=== PATIENT | female | born 1960 | race African-American/Black ===

== ENCOUNTER 2016-09-14 09:48 | Emergency (ER) | payer OTHER ==
[2016-09-14 10:03] VITALS: BP 149/100; PULSE 72; TEMP 97.7; BMI 35.2
[2016-09-14] MEDS ORDERED: IBUPROFEN 400 MG TABLET (FP) PO ONE ×2 (11:50→11:58)
--- NOTE | 2016-09-14 11:56 | PDOC ---
History of Present Illness - General Chief Complaint: Injury Stated Complaint: SWOLLEN RT HAND Time Seen by Provider: 09/14/16 11:22 History Source: Patient - History of Present Illness Occurred: reports: just prior to arrival Upper Extremity Pain Location: right: thumb Method of Injury: reports: fell Past History - Past Medical History Allergies/Adverse Reactions: Allergies Allergy/AdvReac Type Severity Reaction Status Date / Time No Known Allergies Allergy Verified 09/14/16 10:00 Home Medications: Ambulatory Orders NK [No Known Home Medication] 01/05/16 Asthma: Yes HTN: Yes - Psycho/Social/Smoking Cessation Hx Anxiety: No Suicidal Ideation: No Smoking Status: No Smoking History: Never smoked Have you smoked in the past 12 months: No Number of Cigarettes Smoked Daily: 0 Information on smoking cessation initiated: No Hx Alcohol Use: No Drug/Substance Use Hx: No Substance Use Type: None Review of Systems - Review of Systems Musculoskeletal: Yes: Joint Pain, Joint Swelling *Physical Exam - Vital Signs Last Vital Signs Temp Pulse Resp BP Pulse Ox 97.7 F 72 18 149/100 100 09/14/16 10:01 09/14/16 10:01 09/14/16 10:01 09/14/16 10:01 09/14/16 10:01 - Physical Exam General Appearance: Yes: Appropriately Dressed. No: Apparent Distress HEENT: positive: Normal Voice Neck: positive: Supple Respiratory/Chest: negative: Respiratory Distress Musculoskeletal: positive: Other (+ttp to MCP of R thumb, no sig swelling or deformity, FROMI, no snuffbox ttp, wrist uninvolved) Integumentary: positive: Dry, Warm Neurologic: positive: Fully Oriented, Alert, Normal Mood/Affect ED Treatment Course - RADIOLOGY Radiology Studies Ordered: Category Date Time Status HAND- RIGHT [RAD] Stat Radiology 09/14/16 11:50 Ordered Medical Decision Making - Medical Decision Making 09/14/16 11:56 55-year-old female, no significant history here with right thumb pain and swelling after fall at work this a.m. Patient states she tripped over milk Retroficiencyn and fell onto her right side, striking R hand against the ground. Denies any other injury at this time. See exam R thumb injury M/l sprain, no snuff box ttp R/o fx -xr -pain control 09/14/16 12:02 09/14/16 13:39 XR read as neg for fx. Finger splint placed in ED and pt discharged w/ otc meds as needed 09/14/16 13:41 *DC/Admit/Observation/Transfer Diagnosis at time of Disposition: Finger sprain Qualifiers: Encounter type: initial encounter Finger: thumb Sprain of finger site: metacarpophalangeal joint Laterality: right Qualified Code(s): S63.641A - Sprain of metacarpophalangeal joint of right thumb, initial encounter - Discharge Dispostion Disposition: HOME Condition at time of disposition: Good - Patient Instructions Printed Discharge Instructions: DI for Finger Sprain Additional Instructions: Your x-ray did not reveal any fractures today Use splint for comfort and take Motrin or Tylenol as needed for pain - Post Discharge Activity Work/School Note: Back to Work
== END 2016-09-14 13:53 | disposition home or self-care (01) ==
LOC: JERFT 09:48
PROC: 2W3JX1Z Immobilization of Right Finger using Splint (ICD-10-PCS; principal; 2016-09-14)
DX: S63.641A Sprain of metacarpophalangeal joint of right thumb, initial encounter (principal); W18.39XA Other fall on same level, initial encounter; Y93.89 Activity, other specified; Y92.9 Unspecified place or not applicable; Y99.0 Civilian activity done for income or pay; I10 Essential (primary) hypertension; J45.909 Unspecified asthma, uncomplicated
CPT/HCPCS: 29130; 73130-TC-RT; 99281-25

== ENCOUNTER 2017-05-25 15:56 | Emergency (ER) | payer OTHER ==
[2017-05-25 16:06] VITALS: BP 148/90; PULSE 78; TEMP 98.5; BMI 40.8
--- NOTE | 2017-05-25 16:08 | PDOC ---
History of Present Illness - General Stated Complaint: PINK EYE Time Seen by Provider: 05/25/17 16:01 History Source: Patient Exam Limitations: No Limitations - History of Present Illness Initial Comments: 05/25/17 16:12 This is a 56yo woman with PMH htn, asthma who presents to the ER for 1 day of left eye redness and "gritty" sensation to her left eye. Patient states she awoke this AM with thick yellow discharge from left eye. She denies any trauma, visual changes, FB sensation. Past History - Past Medical History Allergies/Adverse Reactions: Allergies Allergy/AdvReac Type Severity Reaction Status Date / Time No Known Allergies Allergy Verified 05/25/17 16:04 Home Medications: Ambulatory Orders Erythromycin 0.5% Eye Ointment [Erythromycin 0.5% Eye Ointment -] 1 applic OS TID #1 tube 05/25/17 Asthma: Yes HTN: Yes - Suicide/Smoking/Psychosocial Hx Smoking Status: No Smoking History: Never smoked Have you smoked in the past 12 months: No Number of Cigarettes Smoked Daily: 0 Hx Alcohol Use: No Drug/Substance Use Hx: No Substance Use Type: None Review of Systems - Review of Systems Able to Perform ROS?: Yes Is the patient limited Marshallese proficient: No Constitutional: No: Symptoms Reported HEENTM: Yes: See HPI Respiratory: No: Symptoms reported Cardiac (ROS): No: Symptoms Reported ABD/GI: No: Symptoms Reported : No: Symptoms Reported Musculoskeletal: No: Symptoms Reported Integumentary: No: Symptoms Reported Neurological: No: Symptoms reported Endocrine: No: Symptoms Reported Hematologic/Lymphatic: No: Symptoms Reported *Physical Exam - Physical Exam General Appearance: Yes: Appropriately Dressed. No: Apparent Distress HEENT: positive: EOMI, PATRICIA, Other (left conjunctiva erythema extending to the limbus. Visual acuity 20/20 with corrective lenses. ) Respiratory/Chest: positive: Lungs Clear, Normal Breath Sounds. negative: Respiratory Distress, Accessory Muscle Use Medical Decision Making - Medical Decision Making 05/25/17 16:09 A/P: 56yo woman with 1 day of left eye redness with "gritty" sensation in her eye. Scleral erythema present stopping at the limbus. Right eye WNL. EOMI Visual acuity 20/20 with corrective lenses. Discharge with EES ointment *DC/Admit/Observation/Transfer Diagnosis at time of Disposition: Conjunctivitis Qualifiers: Conjunctivitis type: acute Acute conjunctivitis type: bacterial Laterality: left Qualified Code(s): H10.32 - Unspecified acute conjunctivitis, left eye - Discharge Dispostion Disposition: HOME Condition at time of disposition: Stable Admit: No - Prescriptions Prescriptions: Erythromycin 0.5% Eye Ointment [Erythromycin 0.5% Eye Ointment -] 1 applic OS TID #1 tube - Referrals Referrals: Anne-Marie Woodson MD [Primary Care Provider] - - Patient Instructions Printed Discharge Instructions: DI for Conjunctivitis Additional Instructions: Wash your hands every time you touch your face. Apply erythromycin ointment to left eye 5 times a day for 5 days. No work for 4 days. Return to ER for worsening symptoms or any other concerns. - Post Discharge Activity Forms/Work/School Notes: Back to Work
[2017-05-25] MEDS ORDERED: ERYTHROMYCIN 0.5% OPHTHALMIC OINTMENT 3.5 GM TUBE OS ONE (16:14)
== END 2017-05-25 16:25 | disposition home or self-care (01) ==
LOC: JERFT 15:56
DX: H10.32 Unspecified acute conjunctivitis, left eye (principal); J45.909 Unspecified asthma, uncomplicated; I10 Essential (primary) hypertension
CPT/HCPCS: 99281-25

== ENCOUNTER → 2018-09-14 | Day surgery (SDC) | payer OTHER ==
--- NOTE | 2018-09-21 17:09 | PATH ---
Surgical Pathology Report Patient Name: LULI WAYNE [facility]. Rec. #: [id number] /Age/Gender: 1960 (Age: 57) / F Account: [id number] Location: RADIOLOGY Taken: 09/14/2018 Received: 09/14/2018 Reported: 09/21/2018 Physicians: Marti Harman M.D. Specimen(s) Received LYMPH NODE LEFT AXILLA Clinical History Nonpalpable lesion Ultrasound findings: Suspicious Final Diagnosis AXILLARY LYMPH NODE, LEFT, CORE BIOPSY: FRAGMENTS OF LYMPH NODE WITH FOCAL DERMATOPATHIC CHANGE. NO DETECTABLE INVOLVEMENT BY LYMPHOMA. Microscopic Description: The specimen consists of needle core shaped fragments of lymph node with follicles with germinal center formation; focal dermatopathic change is noted. Immunostains demonstrate normal distribution of B-cells and T-cells. Aberrant immunoprofiles are not seen. Immunostains performed: CD20..B-cells positive PAX-5...B-cells positive CD3..T-cells positive CD5...T-cells positive CD10..Germinal centers positive BCL-6...Germinal centers positive BCL-2...Germinal centers negative BCL-1...Negative [place] (LORELEI)..Subset of plasma cells positive Lambda (LORELEI)..Subset of plasma cells positive JOSEPH...Negative AE1/AE3...Negative S100...Interdigitating dendritic cells positive CD23...Follicular dendritic cells positive. Comment: This case was sent to Dr. Herrera Gudino from [facility], [place], [place] ([id number]) the diagnosis above reflects his opinion. See [facility] report for additional details. Electronically Signed Halle Isaac M.D. Gross Description Received in formalin labeled "left axilla," are 5 rowan-yellow, cylindrical portions of fibroadipose tissue ranging from 0.3-1.5 cm in length and averaging 0.1 cm in diameter. The specimens are submitted in toto in one cassette. Time to formalin fixation: Less than one minute Total formalin fixation time: Approximately 6 hours. /09/14/2018 saudi09/14/2018
== END | disposition home or self-care (01) ==
LOC: JMAMMO-SUR 10:50
PROVIDERS: ATTEND Family Medicine
PROC: 07B63ZX Excision of Left Axillary Lymphatic, Percutaneous Approach, Diagnostic (ICD-10-PCS; principal; 2018-09-14)
DX: D36.0 Benign neoplasm of lymph nodes (principal)
CPT/HCPCS: 19083; 87899; 88307-TC; A4648